=== PATIENT | male | born 1965 | race Caucasian/White ===

== ENCOUNTER 2021-08-26 05:51 | Inpatient (IN) | payer BC ==
[~2021-08-26] VITALS: Ht 175.2 cm; Wt 62.5 kg
[~2021-08-26 05:51] MED LIST: IBP800T PO; NAPR220T76
[2021-08-26] MEDS ORDERED: LIDOCAINE 1% INJ 20 ML VIAL ONE (06:04)
[2021-08-26] MEDS ORDERED: fentaNYL INJ 100 MCG/2 ML AMP ONE ×2 (06:08→08:33)
[2021-08-26] MEDS ORDERED: fentaNYL INJ 100 MCG/2 ML AMP IVP STA (06:13)
[2021-08-26] MEDS ORDERED: ceFAZolin 2 GM IV Premixed 50 ML IV ONE (06:15)
[2021-08-26] MEDS ORDERED: TETANUS,DIPTH,PERTUSS P/F (BOOSTRIX) 0.5 ML VIAL IM ONE (06:15)
[2021-08-26 06:19] LABS: HEMATOCRIT 38 % (40-54); HEMOGLOBIN 12.7 g/dL (13.3-17.7); MEAN CORPUSCULAR HEMOGLOBIN 32 pg (25-34); MEAN CORPUSCULAR HGB CONC 33 g/dL (32-36); MEAN CORPUSCULAR VOLUME 94 fL (80-99); MEAN PLATELET VOLUME 9.4 fL (9.0-12.2); PLATELET COUNT 245 10^3/uL (130-400); WHITE BLOOD COUNT 6.9 10^3/uL (4.3-11.0)
[2021-08-26 06:29] LABS: FIBRIN DEGRADATION PRODUCTS 0.49 UG/ML (0.00-0.49); PROTHROMBIN TIME PATIENT 13.7 SEC (12.2-14.7)
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
[2021-08-26 06:45] LABS: ALBUMIN 3.9 GM/DL (3.2-4.5); CHLORIDE 108 MMOL/L (98-107); POTASSIUM 3.7 MMOL/L (3.6-5.0); SODIUM 140 MMOL/L (135-145)
[2021-08-26] MEDS ORDERED: fentaNYL INJ 100 MCG/2 ML AMP IVP ONE ×2 (06:45→08:45)
[2021-08-26 06:47] LABS: CALCIUM 8.5 MG/DL (8.5-10.1)
[2021-08-26 06:48] LABS: GLUCOSE 134 MG/DL (70-105); TOTAL PROTEIN 6.4 GM/DL (6.4-8.2)
[2021-08-26 06:49] LABS: CARBON DIOXIDE 21 MMOL/L (21-32)
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
[2021-08-26 06:50] LABS: BILIRUBIN,TOTAL 0.2 MG/DL (0.1-1.0)
[2021-08-26 06:51] LABS: ALKALINE PHOSPHATASE 49 U/L (40-136); PHOSPHORUS 2.3 MG/DL (2.3-4.7)
[2021-08-26 06:52] LABS: CREATININE SERUM 0.96 MG/DL (0.60-1.30); GFR ESTIMATED 81
[2021-08-26 06:53] LABS: BILIRUBIN,DIRECT 0.1 MG/DL (0.0-0.3); BILIRUBIN,INDIRECT 0.1 MG/DL; BUN/CREATININE RATIO 13
[2021-08-26 06:55] LABS: ALANINE AMINOTRANSFERASE 7 U/L (0-55)
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
[2021-08-26] MEDS ORDERED: ONDANSETRON 4 MG/2 ML (SDV) Z0FRAN IV PRN ×2 (10:00→16:15)
[2021-08-26] MEDS ORDERED: ACETAMINOPHEN 325 MG TABLET PO PRN ×2 (10:00→16:15)
[2021-08-26] MEDS ORDERED: IBUPROFEN 600 MG (MOTRIN) TAB PO PRN (10:00)
[2021-08-26] MEDS: NS IV 1000 ML 1,000 ML IV SCH ×2 (10:17→20:40)
[2021-08-26] MEDS: fentaNYL INJ 100 MCG/2 ML AMP IV PRN ×4 (10:18→22:44)
--- NOTE | 2021-08-26 10:55 | Discharge Inst-Surgical ---
D/C Lap Instructions-NEGRITO Follow Up Appt in 1 week after f/u chest xr Activity as tolerated No driving for 24 hours Regular Diet Symptoms to Report: Fever over 101 degree F, Nausea/Vomiting Infection Signs and Symptoms to report: Increased redness, Foul odor of wound, Increased drainage Bathing instructions: May shower Operative Area Clean/Dry; Keep incision clean/dry If any problems/questions: Contact your physician or go to Emergency Room GEORGINA MAHAN MD Aug 26, 2021 10:55
[2021-08-26] MEDS ORDERED: CEPH500T PO (10:57)
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
[2021-08-26] MEDS ORDERED: MELATONIN 3 MG TABLET PO PRN (16:15)
[2021-08-26] MEDS ORDERED: ANTACID SUSP 30 ML UDC (MYLANTA) PO PRN (16:15)
[2021-08-26] MEDS ORDERED: diphenhydrAMINE 25 MG TAB (BENADRYL) PO PRN (16:15)
[2021-08-26] MEDS ORDERED: polyethylene glycoL POWDER 17 GM (MIRALAX) PACK PO PRN (16:15)
[2021-08-26] MEDS ORDERED: ONDANSETRON 4 MG (ZOFRAN) ORAL DISSOLVE TAB PO PRN (16:15)
[2021-08-26] MEDS: DOCUSATE SODIUM 100 MG (COLACE) CAP PO SCH (20:41)
[2021-08-26] MEDS: SENNOSIDES 8.6 MG (SENOKOT) TAB PO SCH (20:41)
[2021-08-27] MEDS: fentaNYL INJ 100 MCG/2 ML AMP IV PRN ×5 (00:45→23:08)
[2021-08-27] MEDS: HYDROcodone/APAP 5 MG/325 MG (LORTAB) TAB PO PRN (03:37)
[2021-08-27 05:44] LABS: BASOPHILS % (AUTO) 0 % (0-10); EOSINOPHILS % (AUTO) 0 % (0-10); HEMATOCRIT 38 % (40-54); HEMOGLOBIN 12.6 g/dL (13.3-17.7); LYMPHOCYTES # (AUTO) 1.6 10^3/uL (1.0-4.0); LYMPHOCYTES % (AUTO) 16 % (12-44); MEAN CORPUSCULAR HEMOGLOBIN 31 pg (25-34); MEAN CORPUSCULAR HGB CONC 33 g/dL (32-36); MEAN CORPUSCULAR VOLUME 94 fL (80-99); MEAN PLATELET VOLUME 9.5 fL (9.0-12.2); MONOCYTES # (AUTO) 0.9 10^3/uL (0.0-1.0); MONOCYTES % (AUTO) 8 % (0-12); NEUTROPHILS # (AUTO) 7.8 10^3/uL (1.8-7.8); NEUTROPHILS % (AUTO) 75 % (42-75); PLATELET COUNT 219 10^3/uL (130-400); WHITE BLOOD COUNT 10.4 10^3/uL (4.3-11.0)
[2021-08-27 06:01] LABS: POTASSIUM 4.4 MMOL/L (3.6-5.0)
[2021-08-27 06:02] LABS: CALCIUM 8.5 MG/DL (8.5-10.1)
[2021-08-27 06:06] LABS: CREATININE SERUM 0.79 MG/DL (0.60-1.30)
--- NOTE | 2021-08-27 07:29 | Diagnostic Imaging Report ---
Portable erect AP chest at 639 INDICATION: Chest tube placement The prior exam of 08/26/2021 noted a right-sided chest tube in place. There is no appreciable pneumothorax identified on that supine study. On this exam the chest tube is again evident and remains similar in position to the prior exam. There is now a small basilar pneumothorax evident on the right. The distance from the bony thorax to the lung edge is approximately 9 mm. A small amount of atelectasis/infiltrate is also seen in the right infrahilar region. The left lung is generally clear and the heart is stable. The mediastinum is not widened. The osseous structures are intact. IMPRESSION: 1. In the interval since the prior study a small basilar pneumothorax has developed. A follow-up study would be recommended for continued evaluation. 2. There is also mild right infrahilar atelectasis/infiltrate. The overall appearance of the chest is otherwise stable. Report was called to [facility] floor [place], nurse by shmuel at 7:27am. Dictated by: Dictated on workstation # [id number]
[2021-08-27] MEDS: DOCUSATE SODIUM 100 MG (COLACE) CAP PO SCH ×2 (07:48→21:02)
[2021-08-27] MEDS: SENNOSIDES 8.6 MG (SENOKOT) TAB PO SCH ×2 (07:48→21:02)
[2021-08-27] MEDS: NS IV 1000 ML 1,000 ML IV SCH ×3 (07:48→17:23)
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
[2021-08-27] MEDS ORDERED: morphine INJ 4 MG/ML 1 ML (VIAL/SYRINGE) IVP ONE (10:30)
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
[2021-08-28] MEDS: fentaNYL INJ 100 MCG/2 ML AMP IV PRN ×3 (03:10→12:23)
[2021-08-28] MEDS: NS IV 1000 ML 1,000 ML IV SCH ×3 (03:10→22:33)
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
[2021-08-28] MEDS: HYDROcodone/APAP 5 MG/325 MG (LORTAB) TAB PO PRN ×3 (09:03→23:37)
[2021-08-28] MEDS: SENNOSIDES 8.6 MG (SENOKOT) TAB PO SCH ×2 (09:03→21:17)
[2021-08-28] MEDS: DOCUSATE SODIUM 100 MG (COLACE) CAP PO SCH ×2 (09:03→21:16)
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
--- NOTE | 2021-08-29 06:09 | Diagnostic Imaging Report ---
CHEST 1 VIEW, AP/PA ONLY Indication: Pneumothorax Comparison: 08/28/2021 Findings: Right chest tube has been removed. There remains a small right basilar pneumothorax. No mediastinal shift. Chronic linear opacity left upper lobe with subpleural scarring are unchanged. Stable cardiac silhouette. Impression: 1. Slightly increased in size of small right basilar pneumothorax after chest tube removal. Dictated by: Dictated on workstation # [id number]
[2021-08-29] MEDS: NS IV 1000 ML 1,000 ML IV SCH ×2 (08:25→18:33)
[2021-08-29] MEDS: SENNOSIDES 8.6 MG (SENOKOT) TAB PO SCH ×2 (08:26→19:54)
[2021-08-29] MEDS: HYDROcodone/APAP 5 MG/325 MG (LORTAB) TAB PO PRN (08:26)
[2021-08-29] MEDS: DOCUSATE SODIUM 100 MG (COLACE) CAP PO SCH ×2 (08:26→19:54)
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
[2021-08-30] MEDS: NS IV 1000 ML 1,000 ML IV SCH ×2 (04:58→21:07)
[2021-08-30] MEDS: DOCUSATE SODIUM 100 MG (COLACE) CAP PO SCH ×2 (09:00→19:34)
[2021-08-30] MEDS: SENNOSIDES 8.6 MG (SENOKOT) TAB PO SCH ×2 (09:00→19:35)
[2021-08-30] MEDS ORDERED: LACTATED RINGERS 1,000 ML IV PRN ×2 (12:30)
[2021-08-30] MEDS ORDERED: MIDAZOLAM 2 MG/2 ML (VERSED) VIAL ONE (12:30)
[2021-08-30] MEDS ORDERED: fentaNYL INJ 100 MCG/2 ML AMP ONE ×2 (12:30→13:35)
[2021-08-30] MEDS ORDERED: LIDOCAINE PF 2% 5 ML (XYLOCAINE) VIAL ONE (12:31)
[2021-08-30] MEDS ORDERED: SEVOFLURANE (ULTANE) 15 ML INHAL SOLN ONE ×2 (12:31→14:09)
[2021-08-30] MEDS ORDERED: BUPIVACAINE 0.25% 30 ML (SENSORCAINE) VIAL ONE (12:31)
[2021-08-30] MEDS ORDERED: proPOfol 200 MG/20 ML (DIPRIVAN) VIAL IV ONE (12:31)
[2021-08-30] MEDS ORDERED: ROCURONIUM 10 MG/ML 5 ML SYRINGE IV ONE (12:31)
[2021-08-30] MEDS ORDERED: ONDANSETRON 4 MG/2 ML (SDV) Z0FRAN ONE (12:31)
[2021-08-30] MEDS ORDERED: ceFAZolin INJECTION 1,000 MG ONE (13:05)
[2021-08-30] MEDS ORDERED: LIDOCAINE/EPI 1%-1:200,000 (XYLOCAINE) 30 ML VIAL ONE (13:05)
[2021-08-30] MEDS ORDERED: NEO/POLY/BAC (NEOSPORIN) OINT 15 GM TUBE ONE (14:07)
[2021-08-30] MEDS ORDERED: GLYCOPYRROLATE 0.2 MG/ML (ROBINUL) 2 ML VIAL ONE (14:10)
[2021-08-30] MEDS ORDERED: NEOSTIGMINE 3 MG/3 ML VIAL ONE (14:10)
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
[2021-08-30] MEDS ORDERED: SUCCINYLCHOLINE INJ 100 MG/5 ML SYR/VIAL ONE (14:14)
[2021-08-30 14:17] VITALS: BP 149/86
[2021-08-30 14:20] VITALS: BP 183/99
[2021-08-30 14:30] VITALS: BP 160/92
[2021-08-30 14:40] VITALS: BP 163/88
--- NOTE | 2021-08-30 14:45 | Diagnostic Imaging Report ---
INDICATION: Pneumothorax. Comparison made with prior examination of 08/29/2021. FINDINGS: A small bore right thoracostomy tube remains in place. There is a cyst tiny residual right apical pneumothorax. Heart size is normal. There is some right basilar atelectasis and/or pneumonitis. Mediastinum is unremarkable. IMPRESSION: Small residual right pneumothorax. Right basilar atelectasis and/or pneumonitis Dictated by: Dictated on workstation # [id number]
[2021-08-30 14:50] VITALS: BP 156/90
--- NOTE | 2021-08-30 14:53 | Anesthesia-General Post-Op ---
General Patient Condition Mental Status/LOC: Same as Preop Cardiovascular: Satisfactory Nausea/Vomiting: Absent Respiratory: Satisfactory Pain: Controlled Complications: Absent Post Op Complications Complications None Follow Up Care/Instructions Patient Instructions None needed. Anesthesia/Patient Condition Patient Condition Patient is doing well, no complaints, stable vital signs, no apparent adverse anesthesia problems. No complications reported per nursing. NADIA LAMB CRNA Aug 30, 2021 14:53
[2021-08-30 15:00] VITALS: BP 161/88
[2021-08-30] MEDS: HYDROcodone/APAP 5 MG/325 MG (LORTAB) TAB PO PRN (19:34)
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
[2021-08-31] MEDS: HYDROcodone/APAP 5 MG/325 MG (LORTAB) TAB PO PRN ×3 (00:33→23:16)
--- NOTE | 2021-08-31 07:32 | Diagnostic Imaging Report ---
Indication: Chest wall leak. Indwelling chest tube. History of pneumothorax. COMPARISON: 08/30/2021 FINDINGS: Single frontal radiographic view the chest was obtained and again demonstrates indwelling right-sided smallbore chest tube. There has been interval development of moderate right-sided pneumothorax. There is no pneumothorax on the left. Background moderate emphysematous changes are noted. There is no large effusion. Cardiac silhouette and pulmonary vasculature are within normal limits. Osseous structures are unchanged. IMPRESSION: 1. Interval development of moderate right-sided pneumothorax. 2. Indwelling right-sided smallbore chest tube remains in stable position. Report was called to [facility] nurse by shmuel at 7:33am. Dictated by: Dictated on workstation # [id number]
[2021-08-31] MEDS: DOCUSATE SODIUM 100 MG (COLACE) CAP PO SCH ×2 (08:33→21:01)
[2021-08-31] MEDS: SENNOSIDES 8.6 MG (SENOKOT) TAB PO SCH ×2 (08:33→21:01)
--- NOTE | 2021-08-31 09:33 | Anesthesia-General Post-Op ---
General Patient Condition Mental Status/LOC: Same as Preop Cardiovascular: Satisfactory Nausea/Vomiting: Absent Respiratory: Satisfactory Pain: Controlled Complications: Absent Post Op Complications Complications None Follow Up Care/Instructions Patient Instructions None needed. Anesthesia/Patient Condition Patient Condition Patient is doing well, no complaints, stable vital signs, no apparent adverse anesthesia problems. No complications reported per nursing. QUOC LARES CRNA Aug 31, 2021 09:33
[2021-08-31] MEDS: NS IV 1000 ML 1,000 ML IV SCH ×3 (10:50→20:58)
--- NOTE | 2021-08-31 11:06 | Diagnostic Imaging Report ---
INDICATION: Pneumothorax. TIME OF EXAM: 11:00 a.m. COMPARISON: Correlation is made with prior chest from earlier the same day. FINDINGS: Heart size is stable. The right-sided basilar pneumothorax has reduced in size and is now very small in the right base. The small-bore chest tube on the right remains in place. Changes of COPD are noted. There is some scarring in the left upper lobe. There is no effusion. IMPRESSION: Reduction in size of right basilar pneumothorax when compared with examination earlier today. Dictated by: Dictated on workstation # [id number]
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
[2021-09-01] MEDS: SENNOSIDES 8.6 MG (SENOKOT) TAB PO SCH ×2 (08:24→20:18)
[2021-09-01] MEDS: HYDROcodone/APAP 5 MG/325 MG (LORTAB) TAB PO PRN ×2 (08:24→20:18)
[2021-09-01] MEDS: DOCUSATE SODIUM 100 MG (COLACE) CAP PO SCH ×2 (08:24→20:18)
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
--- NOTE | 2021-09-01 15:50 | Diagnostic Imaging Report ---
INDICATION: Follow-up pneumothorax. COMPARISON: 08/31/2021 FINDINGS: Single frontal radiographic view of the chest was obtained and again demonstrates stable indwelling right-sided smallbore chest tube and trace right-sided pneumothorax. This does appear slightly less when compared to 08/31/2021. The lungs are otherwise clear. There is no large effusion. Cardiac silhouette and pulmonary vasculature are within normal limits. IMPRESSION: 1. Slight interval reduction in trace right-sided pneumothorax. 2. Right smallbore chest tube remains in stable position. Dictated by: Dictated on workstation # [id number]
[2021-09-01] MEDS: NS IV 1000 ML 1,000 ML IV SCH (17:12)
[2021-09-02] MEDS: NS IV 1000 ML 1,000 ML IV SCH ×2 (04:59→12:41)
--- NOTE | 2021-09-02 08:10 | Diagnostic Imaging Report ---
Portable erect AP chest at 6:25. Indication: Pneumothorax The prior exam of 09/01/2021 noted a small caliber chest tube in place on the right as well as a trace right-sided pneumothorax. On this exam there is little if any residual free air still present in the thorax. However there has been some increase in the density in the right lung base which does suggest pneumonia/atelectasis. The lungs are otherwise clear. Scar formation is again seen in the left upper lobe. The heart is stable. The mediastinum is not widened. The osseous structures are intact. Impression: The trace pneumothorax noted on the prior exam is difficult to visualize on this study. However there does seem to be increasing atelectasis/pneumonia involving the right lung base. A followup study should be considered for further study. Dictated by: Dictated on workstation # [id number]
[2021-09-02] MEDS: SENNOSIDES 8.6 MG (SENOKOT) TAB PO SCH (08:42)
[2021-09-02] MEDS: DOCUSATE SODIUM 100 MG (COLACE) CAP PO SCH (08:42)
[2021-09-02] MEDS: HYDROcodone/APAP 5 MG/325 MG (LORTAB) TAB PO PRN (08:44)
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
== END 2021-09-02 14:34 | disposition home or self-care (01) | DRG 908 ==
LOC: EDUNIT# 05:51 → ER 05:54 → ICU 07:00 → 4TH 11:56
PROVIDERS: ADMIT Surgery; ATTEND Surgery
PROC: 0W9930Z Drainage of Right Pleural Cavity with Drainage Device, Percutaneous Approach (ICD-10-PCS; principal; 2021-08-26)
PROC: 0BQ Respiratory System, Repair (ICD-10-PCS; 2021-08-30)
PROC: 0KQH0ZZ Repair Right Thorax Muscle, Open Approach (ICD-10-PCS; 2021-08-30)
PROC: 0JQ60ZZ Repair Chest Subcutaneous Tissue and Fascia, Open Approach (ICD-10-PCS; 2021-08-30)
DX: S21.311A Laceration without foreign body of right front wall of thorax with penetration into thoracic cavity, initial encounter (principal); J95.812 Postprocedural air leak; F17.210 Nicotine dependence, cigarettes, uncomplicated; S71.111A Laceration without foreign body, right thigh, initial encounter; S27.0XXA Traumatic pneumothorax, initial encounter; Z20.822 Contact with and (suspected) exposure to COVID-19
CPT/HCPCS: 32551; 36415; 71045; 80048; 80076; 80320; 82550; 83735; 84100; 85025; 85027; 85379; 85384; 85610; 85730; 86850; 86900; 86901; 86920; 87081; 87636; 90471; 90715; 93041; 94760; 96365; 96375; 96376; 99291

== ENCOUNTER → 2021-09-18 | Outpatient (CLI) | payer BC ==
[~2021-09-18] MED LIST changes: +CEPH500T PO
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
== END ==
LOC: RAD 14:29
PROVIDERS: ATTEND Surgery
DX: J43.9 Emphysema, unspecified (principal)
CPT/HCPCS: 71046